=== PATIENT | female | born 1995 | race Two or more races ===

== ENCOUNTER 2020-01-20 05:48 | Emergency (ER) | payer MEDICAID ==
[~2020-01-20] VITALS: Ht 160 cm; Wt 81.6 kg
[2020-01-20 06:07] VITALS: BP 128/85
[2020-01-20] MEDS ORDERED: IBUPROFEN 800 MG TAB PO ONE (07:15)
== END 2020-01-20 07:28 | disposition home or self-care (01) ==
LOC: ER 05:48
DX: H66.93 Otitis media, unspecified, bilateral (principal); H10.32 Unspecified acute conjunctivitis, left eye; Z88.6 Allergy status to analgesic agent

== ENCOUNTER 2020-01-21 14:02 | Emergency (ER) | payer MEDICAID ==
[~2020-01-21] VITALS: Ht 160 cm; Wt 81.6 kg
[2020-01-21 17:41] VITALS: BP 121/77
== END 2020-01-21 18:11 | disposition home or self-care (01) ==
LOC: ER 14:02
DX: H60.91 Unspecified otitis externa, right ear (principal); Z88.6 Allergy status to analgesic agent

== ENCOUNTER 2023-05-09 13:03 | Emergency (ER) | payer MEDICAID, OTHER ==
[~2023-05-09] VITALS: Ht 160 cm; Wt 89.9 kg
[2023-05-09] MEDS ORDERED: KETOROLAC TROMETH 60MG/2ML VIAL IM ONE (14:30)
[2023-05-09] MEDS ORDERED: CYCLOBENZAPRINE HCL 10 MG TAB PO ONE (14:30)
[2023-05-09 14:59] VITALS: BP 118/68
[2023-05-09 15:28] LABS: Basophils # (auto) 0.2 10 ^3/uL (0-0.2); Basophils % (auto) 1.1 % (0.0-2.0); Eosinophils # (auto) 0.1 10 ^3/uL (0-0.8); Eosinophils % (auto) 0.7 % (0.0-7.0); Hematocrit 42.1 % (36.0-46.0); Hemoglobin 14.2 g/dL (12.2-16.2); Lymphocytes % (auto) 13.8 % (10.0-50.0); Mean Corpuscular Hemoglobin 30.8 pg (28.0-32.0); Mean Corpuscular Hgb Conc. 33.6 g/dL (32.0-36.0); Mean Corpuscular Volume 91.5 fL (80.0-100.0); Monocytes # (auto) 0.7 10 ^3/uL (0-1.3); Neutrophils # (auto) 11.3 10 ^3/uL (1.6-8.6); Neutrophils % (auto) 79.4 % (37.0-80.0); Red Cell Distribution Width 13.4 % (11.8-14.3); White Blood Cell 14.3 10^3/uL (4.4-10.8)
[2023-05-09 15:39] LABS: Albumin 3.7 g/dL (3.4-5.0); Calcium 8.8 mg/dL (8.5-10.1); Potassium 4.1 mmol/L (3.5-5.1)
[2023-05-09 15:43] LABS: BUN/Creatinine Ratio 11.7 (10.0-20.0); Bilirubin, Total 0.4 mg/dL (0.2-1.0); Total Protein 7.4 g/dL (6.4-8.2)
[2023-05-09] MEDS ORDERED: cefTRIAXone SOD 1,000 MG VL IM ONE (15:45)
[2023-05-09] MEDS ORDERED: CARI250T PO (16:03)
[2023-05-09] MEDS ORDERED: CEPH250C PO (16:03)
[2023-05-09] MEDS ORDERED: IBU600T PO (16:03)
== END 2023-05-09 16:18 | disposition home or self-care (01) ==
LOC: ER 13:03
DX: R22.31 Localized swelling, mass and lump, right upper limb (principal); M79.18 Myalgia, other site
CPT/HCPCS: 36415; 73200; 80053; 85025; 93971; 96372; 99285; J0696; J1885

== ENCOUNTER 2024-08-20 13:34 | Emergency (ER) | payer OTHER ==
[~2024-08-20] VITALS: Ht 170.2 cm; Wt 81.8 kg
[~2024-08-20 13:34] MED LIST: CARI250T PO; CEPH250C PO; IBU600T PO
[2024-08-20 15:09] VITALS: BP 144/78; PULSE 105; RESP 18; TEMP 98.2; O2SAT 99
[2024-08-20] MEDS: KETOROLAC TROMETH 30 MG/ML 1ML VIAL IM ONE (15:30)
[2024-08-20] MEDS ORDERED: IBUP-1456 PO (16:29)
[2024-08-20] MEDS ORDERED: CYCL-839 PO (16:29)
== END 2024-08-20 16:33 | disposition home or self-care (01) ==
LOC: EDBD 13:34 → ER 13:34
DX: M79.18 Myalgia, other site (principal); R07.89 Other chest pain; M79.662 Pain in left lower leg; M79.631 Pain in right forearm; Z88.5 Allergy status to narcotic agent; V43.52XA Car driver injured in collision with other type car in traffic accident, initial encounter; Y93.89 Activity, other specified; Y92.410 Unspecified street and highway as the place of occurrence of the external cause; Y99.8 Other external cause status
CPT/HCPCS: 71045; 73090; 73110; 73590; 96372; 99284; J1885